=== PATIENT | female | born 1955 | race Caucasian/White ===

== ENCOUNTER 2020-01-19 15:01 | Emergency (ER) | payer SELFPAY ==
[~2020-01-19] VITALS: Ht 152.4 cm; Wt 82.6 kg
[2020-01-19 15:14] VITALS: BP 177/76; Ht 152.4 cm; Wt 82.6 kg
== END 2020-01-19 18:35 | disposition home or self-care (01) ==
LOC: ED 15:01
DX: J02.9 Acute pharyngitis, unspecified (principal); B34.9 Viral infection, unspecified; I10 Essential (primary) hypertension; Z88.0 Allergy status to penicillin